=== PATIENT | female | born 1950 ===

== ENCOUNTER 2018-07-13 08:29 | Day surgery (SDC) | payer MEDICARE, MEDICAID ==
[2018-07-13 08:43] VITALS: BMI 42.5
[2018-07-13 09:21] LABS: BASO # 0.1 K/uL (0.0-0.2); BASO % 0.9 % (0.0-2.0); EOS # 0.1 K/uL (0.0-0.7); EOS % 2.2 % (0.0-4.0); HEMOGLOBIN 13.8 g/dL (11.0-16.0); LYMPH # 2.2 K/uL (1.0-4.3); LYMPH % 33.6 % (20.0-40.0); MEAN CELL VOLUME 91.7 fL (81.0-99.0); MEAN CORPUSCULAR HEMOGLOBIN 30.4 pg (27.0-31.0); MEAN CORPUSCULAR HGB CONC 33.1 g/dL (33.0-37.0); MEAN PLATELET VOLUME 10.2 fL (7.2-11.7); MONO # 0.6 K/uL (0.0-0.8); MONO % 8.6 % (0.0-10.0); NEUT # 3.5 K/uL (1.8-7.0); NEUT % 54.7 % (50.0-75.0); RBC 4.54 Mil/uL (3.80-5.20); RED CELL DISTRIBUTION WIDTH 13.4 % (11.5-14.5); WHITE BLOOD COUNT 6.5 K/uL (4.8-10.8)
[2018-07-13 09:27] LABS: CALCIUM 9.1 mg/dl (8.6-10.4)
[2018-07-13 09:31] LABS: PROTHROMBIN TIME 10.6 SECONDS (9.7-12.2)
[2018-07-13] MEDS ORDERED: Midazolam 2 MG/2 ML VIAL ONE (11:47)
[2018-07-13] MEDS ORDERED: Iodixanol 320 MG/ML 200 ML BOTTLE IV ONE (11:57)
[2018-07-13] MEDS ORDERED: Sodium Chloride 0.9% 1,000 ML IV SCH (12:00)
[2018-07-13] MEDS ORDERED: Enalaprilat 2.5 MG/2 ML ONE (12:27)
--- NOTE | 2018-07-14 07:28 | CARDCATH ---
PROCEDURE DATE: 07/13/2018 BRIEF CLINICAL HISTORY: The patient is a 68-year-old female with history or diabetes, hypertension, hyperlipidemia and having enlarged thyroid which is causing respiratory and digestive obstruction. The patient was referred for cardiology evaluation and clearance. The patient had a nuclear stress imaging done which revealed anterior ischemia and the options were discussed with the patient and the patient agrees for cardiac catheterization. PROCEDURE TECHNIQUE: The patient was brought to the cardiac catheterization lab today. After obtaining the consent, the patient was prepared for the procedure. Right groin was used for access and after obtaining the access, a 6-German sheath was introduced into the right femoral artery, and access was completed without any complication. A JL4 catheter was used to visualize the left coronary artery system. A JR4 catheter was used to visualize the right coronary artery system. A JR4 catheter was used to assess the left ventricular end-diastolic pressure and LV function. FINDINGS: The patient has a normal-sized left main without any significant disease. The patient has LAD is a large-sided vessel which has a sharp bend in the mid-vessel and distal with a bend. The patient has a tight lesion distal to the bend about 80% to 90%. The patient has a large-sized circumflex without any significant disease which is the left dominant system. The patient has a small RCA without any significant disease. The patient has a normal LV systolic function. 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 Normal left ventricular systolic function. PLAN: The patient will be observed in the cardiac catheterization lab and she will be given IV fluids, and we will discuss the options after reviewing the patient about the possible medical management versus angioplasty and stenting of the md [email or web address]. Rowena Conklin MD
--- NOTE | 2018-07-14 19:58 | CARD ---
APPROVED REPORT Date of service: 07/13/2018 EKG Measurement Heart [id number] <Conclusion> Normal sinus rhythm Left axis deviation Abnormal ECG
== END 2018-07-13 18:00 | disposition home or self-care (01) ==
LOC: C.CATHLAB 08:29
PROVIDERS: ATTEND Internal Medicine
DX: I25.10 Atherosclerotic heart disease of native coronary artery without angina pectoris (principal); I10 Essential (primary) hypertension; E78.5 Hyperlipidemia, unspecified
CPT/HCPCS: 36415; 80048; 82948; 85025; 85610; 85730; 93005; 93458; 99152; 99153; C1760; C1769; C1887; C1893; J1644; J2250; J3010; J7030; Q9966

== ENCOUNTER 2018-09-30 09:54 | Outpatient (CLI) | payer MEDICARE, MEDICAID | END 2018-09-30 09:55 | disposition home or self-care (01) | LOC: C.LAB 09:54 | DX: I10 Essential (primary) hypertension (principal); E11.9 Type 2 diabetes mellitus without complications; E03.9 Hypothyroidism, unspecified ==